=== PATIENT | female | born 1935 | race Caucasian/White ===

== ENCOUNTER 2016-09-01 02:50 | Observation (INO) | payer MEDICARE ==
[~2016-09-01] VITALS: Ht 157.5 cm; Wt 111.4 kg
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
--- NOTE | ~2016-09-01 | DS ---
PATIENT'S NAME: JELENA VELASQUEZ [facility] AGE: 81 Y [address] ROOM: [id number] [place], [place] [address] LOCATION: [facility] ADMIT DATE: 09/01/2016 Discharge Summary DISCHARGE DATE: 09/02/2016 FAMILY PHYSICIAN: PHYSICIAN, NO ATTENDING PHYSICIAN: Kevin Jerez CONSULTING PHYSICIAN: Dr. Kat. DISCHARGE DIAGNOSES: 1. Small acute subdural hematoma, status post mechanical fall. 2. Diabetes mellitus with hyperglycemia. 3. Essential hypertension. HOSPITAL COURSE: Please refer to admitting history and physical as dictated by Dr. Brown. Briefly, the patient was admitted to [facility] after she had sustained a mechanical fall. She was diagnosed with small subdural hematoma. Dr. Kat, Neurosurgery, was consulted. He felt as though the subdural hematoma was stable, and no neurosurgical intervention was recommended. She did sustain a laceration to her head. She will need her hank removed by her primary care provider. The patient was monitored overnight. Physical Therapy did see the patient. She was up and ambulatory. Tylenol was used as needed for pain. The following day, she did have a mild headache. She had no nausea or vomiting. Her vital signs were stable. It was discussed with the patient that she should avoid any type of anti-platelet medications for two weeks. On 09/02/2016, it was felt as though the patient was stable to be discharged to home. Follow up with her primary care provider in 3-5 days. LABORATORY DATA: Sodium 138, potassium 4.2, chloride 103, CO2 of 25, glucose 242, BUN 8, creatinine 0.7, total bilirubin 0.5, alkaline phosphatase 71, AST 12, ALT 24, GFR greater than 60. CK-MB 1.3. Troponin less than 0.040. Hemoglobin A1c 8.8. WBCs 10.7, hemoglobin 13.6, hematocrit 41.4, platelets 192. INR 1.0. RADIOLOGY REPORT: CT of the head done on 09/01/2016 showed a right parietal scalp laceration. Tiny acute subdural hematoma along the anterior falx. No mass effect. Chest x-ray showed cardiomegaly without failure. DISCHARGE INSTRUCTIONS: The patient will be discharged to home. Diet: Diabetic, low sodium. Activity: No driving until re-evaluated. Followup appointment with Madan Dorado from [place] who come to [place] in PATIENT'S NAME: JELENA VELASQUEZ [facility] AGE: 81 Y [address] ROOM: [id number] [place], [place] [address] LOCATION: [facility] ADMIT DATE: 09/01/2016 Discharge Summary DISCHARGE DATE: 09/02/2016 FAMILY PHYSICIAN: PHYSICIAN, NO ATTENDING PHYSICIAN: Kevin Jerez 3-5 days. No aspirin, Motrin, Aleve, or Excedrin x2 weeks. Only Tylenol for pain. DISCHARGE MEDICATIONS: 1. Neurontin 600 mg p.o. daily. 2. Neurontin 900 mg p.o. q.h.s. 3. Toujeo 38 units subcu daily. 4. Cozaar 50 mg p.o. twice a day. 5. Prilosec 20 mg p.o. daily. 6. Glucophage 850 mg p.o. 3 times a day with meals. 7. Zocor 40 mg p.o. q.h.s. 8. Aldactone 25 mg p.o. daily. 9. Cymbalta 60 mg p.o. daily. 10. Arimidex 1 mg p.o. daily. 11. Amaryl 4 mg p.o. twice daily. 12. Tylenol Extra Strength 500 mg 1 or 2 tablets p.o. 4 times daily p.r.n. headache or pain. Thank you for allowing us to participate in the care of this patient as she has been hospitalized at [facility]. SOPHIA ROTHMAN APRN FOR MD KATHERIN JOSHI/abdi /[id number] d: 09/03/168 t: 09/12/16 1833, DISCHARGE SUMMARY
[2016-09-01 06:18] LABS: BASOPHIL # 0.1 K/uL (0.0-0.2); BASOPHIL % 0.5 %; EOSINOPHIL # 0.1 K/uL (0.0-0.5); HEMATOCRIT 41.4 % (33.0-46.0); HEMOGLOBIN 13.6 g/dL (10.0-15.0); IMMATURE GRANULOCYTE # 0.1 K/uL (0.0-0.3); IMMATURE GRANULOCYTE % 0.9 %; LYMPHOCYTE # 1.6 K/uL (0.8-4.0); LYMPHOCYTE % 14.5 %; MCH 29.2 pg (27.0-34.0); MCHC 32.9 gm/dL (32.0-36.5); MONOCYTE # 0.8 K/uL (0.0-1.0); MONOCYTE % 7.2 %; NEUTROPHIL # (ANC) 8.1 K/uL (1.8-7.8); NEUTROPHIL % 75.9 %; NRBC % 0 /100WBC (0-0.00); PLATELET COUNT 192 K/uL (150-450); RBC 4.65 M/uL (3.50-5.50); RDW-CV 14.4 % (11.9-14.6); WBC 10.7 K/uL (4.0-11.0)
[2016-09-01 06:25] LABS: PROTIME 10.5 SECONDS (9.8-11.4); PTT 24 SECONDS (25-32)
[2016-09-01 06:39] LABS: ALBUMIN 3.6 gm/dL (3.5-5.0); ALK PHOS 71 IU/L (33-138); ALT 24 IU/L (12-78); ANION GAP 14.2 (10.0-19.0); AST 12 IU/L (10-40); BLOOD UREA NITROGEN 8 mg/dL (6-24); CALCIUM 9.4 mg/dL (8.5-10.5); CHLORIDE 103 mMol/L (96-110); CO2 25 mMol/L (22-32); CPK 77 IU/L (21-215); CREATININE 0.7 mg/dL (0.5-1.1); ESTIMATED GFR (MDRD EQUATION) > 60; POTASSIUM 4.2 mMol/L (3.7-5.1); SODIUM 138 mMol/L (135-145); TOTAL BILIRUBIN 0.5 mg/dL (0.0-1.5); TOTAL PROTEIN 6.5 g/dL (6.0-8.4)
[2016-09-01] MEDS ORDERED: ZOCOR40 MG PO (12:38)
[2016-09-01] MEDS ORDERED: GLUCOPHAGE850 MG PO (12:38)
[2016-09-01] MEDS ORDERED: COZAAR50 MG PO (12:39)
[2016-09-01] MEDS ORDERED: NEURONTIN300 MG PO ×2 (12:42)
[2016-09-01] MEDS ORDERED: PRILOSEC20 MG PO (12:46)
[2016-09-01] MEDS ORDERED: ALDACTONE25 MG PO (12:46)
[2016-09-01] MEDS ORDERED: CYMBALTA30 MG PO (12:47)
[2016-09-01] MEDS ORDERED: ARIMIDEX1 MG PO (12:57)
[2016-09-01] MEDS ORDERED: JARDIANCE10 MG PO (12:58)
[2016-09-01] MEDS ORDERED: ACTOS45 MG PO (13:14)
[2016-09-01] MEDS ORDERED: TOUJEO SOL300 UNIT/1 SUB-Q (13:15)
--- NOTE | 2016-09-01 16:12 | NUR ---
ULTRA HIGH FALL RISK Significant Event: A/O X3, 1 assist/gait belt/walker, hank D/I to back of head, Neurochecks intact & unchanged, follows all commands, good appetite. family visited @ bedside. ambulates in tsang with PT, up in chair, tylenol @ 1115. R)AC saline lock, Follow up: accuchecks, plan for possible discharge tonight or tomorrow to return home to [place].
--- NOTE | 2016-09-02 04:52 | NUR ---
Significant Event: Patient is alert and oriented x3. Follows commands. PERRLA. VSS. Denies BASS, pain, and blurred vision. Her discomfort is related to her RLS. SR- 1+ edema to BLE, Keep SBP less than 250. Room air. Diabetic diet-accu checks ACHS-mild sliding scale. Last BM 09/01-bowels are active. Up with 1A GB/walker. Takes pills whole with water. PIV in the right AC-sl'd. Laceration to the back of the head with 12 hank-open to air-no drainage. Follow up: Plan is to D/C to home.
[2016-09-02] MEDS ORDERED: ARIMIDEX1 MG PO (10:48)
[2016-09-02] MEDS ORDERED: AMARYL4 MG PO (10:49)
--- NOTE | 2016-09-02 12:46 | NUR ---
Introduced self and care management services to patient. Lives alone in [place]. Plans on going home today to [facility] house, will stay with her for a bit until feels safe to go home. Has a son nearby as well. Tells me she has walked laps around [place] and feels steady on feet. Denies needs. Will follow and assist with dc planning as needs identified.
[2016-09-02] MEDS ORDERED: TYLENOL EXTRA500 MG PO (14:46)
--- NOTE | 2016-09-02 15:46 | NUR ---
Significant Event: Patient A/O x3. Neuros intact. Slight headache Controlled with tylenol. PERRLA. Chronic neuropathy to bilateral lower legs. VSS. Afebrile. 1+ generalized edema. Room air with sats in the low to mid 90s. LS clear and diminished. BS active X4. BM this shift. Voids per toilet. Ambulates 1 assist with gaitbelt and walker in the tsang. R) AC PIV D/Cd prior to discharge. Accuchecks ACHS with SSI. Coverage needed. Takes pills whole with water. Discharge and medication information presented to patient. Stated understanding. No questions at this time. Patient discharged to home at 1540 via private auto with daughter. Follow up:
== END 2016-09-02 15:43 | disposition disaster alternative care site (69) ==
LOC: GACC 02:50 → GNTU 05:32
PROVIDERS: Internal Medicine; ADMIT Internal Medicine
DX: S06.5X0A Traumatic subdural hemorrhage without loss of consciousness, initial encounter (principal); E11.65 Type 2 diabetes mellitus with hyperglycemia; I10 Essential (primary) hypertension; E11.40 Type 2 diabetes mellitus with diabetic neuropathy, unspecified; E78.5 Hyperlipidemia, unspecified; E89.0 Postprocedural hypothyroidism; E66.9 Obesity, unspecified; Z68.42 Body mass index [BMI] 45.0-49.9, adult; Z85.3 Personal history of malignant neoplasm of breast; Z90.79 Acquired absence of other genital organ(s); Z90.49 Acquired absence of other specified parts of digestive tract; Z90.710 Acquired absence of both cervix and uterus; Z98.890 Other specified postprocedural states; Z79.84 Long term (current) use of oral hypoglycemic drugs; Z79.899 Other long term (current) drug therapy; W19.XXXA Unspecified fall, initial encounter
CPT/HCPCS: G0378; G8978; G8979; G8980